=== PATIENT | male | born 1965 | race Caucasian/White ===

== ENCOUNTER 2016-11-13 21:08 | Inpatient (IN) | payer MEDICARE ==
[~2016-11-13] VITALS: Ht 177.8 cm; Wt 75.0 kg
[2016-11-14] MEDS ORDERED: HALOPERIDOL 5 MG TABLET PO PRN (00:15)
[2016-11-14] MEDS ORDERED: ZOLPIDEM TARTRATE 10 MG TABLET PO PRN (00:15)
[2016-11-14 01:00] VITALS: BP 119/74
[2016-11-14] MEDS ORDERED: INFLUENZA VIRUS VACCINE QVS 2016-17 (3YR+)/PF 60 MCG/0.5 ML SYRINGE IM ONE (01:15)
[2016-11-14] MEDS ORDERED: PNEUMOCOCCAL VACCINE POLYVALENT 0.5 ML VIAL [PPSV23] IM ONE (01:15)
[2016-11-14 06:31] LABS: GLUCOSE,POINT OF CARE 123 MG/DL (70-110)
[2016-11-14 08:06] VITALS: BP 120/71
[2016-11-14] MEDS: LORazepam 2 MG TABLET PO PRN (08:26)
[2016-11-14 16:03] VITALS: BP 112/94
[2016-11-14] MEDS ORDERED: ALBUTEROL SULFATE HFA 90 MCG/PUFF 8 GM INHALER IH PRN (19:00)
[2016-11-14] MEDS ORDERED: BENZOCAINE/MENTHOL LOZENGE MM PRN (19:00)
[2016-11-14] MEDS ORDERED: CloNIDine HCL 0.1 MG TABLET PO PRN (19:00)
[2016-11-14] MEDS ORDERED: IBUPROFEN 600 MG TABLET PO PRN (19:00)
[2016-11-14] MEDS ORDERED: LOPERAMIDE HCL 2 MG CAPSULE PO PRN (19:00)
[2016-11-14] MEDS ORDERED: BACITRACIN 28.4 GM OINTMENT TP PRN (19:00)
[2016-11-14] MEDS ORDERED: MAGNESIUM HYDROXIDE SUSPENSION 30 ML UDCUP PO PRN (19:00)
[2016-11-14] MEDS ORDERED: ONDANSETRON HCL 4 MG TABLET PO PRN (19:00)
[2016-11-14] MEDS ORDERED: PETROLATUM,WHITE 71 GM JELLY TP PRN (19:00)
[2016-11-14] MEDS ORDERED: ACETAMINOPHEN 325 MG TABLET PO PRN (19:00)
[2016-11-14] MEDS ORDERED: MAG HYDROX/AL HYDROX/SIMETH ES 30 ML SUSPENSION UDCUP PO PRN (19:00)
[2016-11-15 03:47] VITALS: BP 124/85
[2016-11-15 08:17] VITALS: BP 109/66
[2016-11-15] MEDS: MUPIROCIN CALCIUM 2% 15 GM CREAM TP SCH ×2 (13:00→16:31)
[2016-11-15] MEDS: RisperiDONE 3 MG TABLET PO SCH ×2 (13:00→16:31)
[2016-11-15 16:20] VITALS: BP 121/72
[2016-11-15] MEDS ORDERED: RisperiDONE 3 MG TABLET PO SCH (17:00)
[2016-11-16 06:22] VITALS: BP 123/63
[2016-11-16 08:33] VITALS: BP 102/65
[2016-11-16] MEDS: RisperiDONE 3 MG TABLET PO SCH ×2 (09:57→16:44)
[2016-11-16] MEDS: MUPIROCIN CALCIUM 2% 15 GM CREAM TP SCH ×2 (09:57→17:16)
[2016-11-16 16:05] VITALS: BP 114/68
[2016-11-17 06:45] VITALS: BP 112/66
[2016-11-17 08:04] VITALS: BP 107/60
[2016-11-17] MEDS: RisperiDONE 3 MG TABLET PO SCH ×2 (09:44→17:19)
[2016-11-17] MEDS: MUPIROCIN CALCIUM 2% 15 GM CREAM TP SCH ×2 (09:44→17:19)
[2016-11-17 16:00] VITALS: BP 106/75
[2016-11-18 06:31] VITALS: BP 114/68
[2016-11-18 08:03] VITALS: BP 129/67
[2016-11-18] MEDS: RisperiDONE 3 MG TABLET PO SCH (08:25)
[2016-11-18] MEDS: LORazepam 2 MG TABLET PO PRN (08:25)
[2016-11-18] MEDS: MUPIROCIN CALCIUM 2% 15 GM CREAM TP SCH ×2 (08:26→16:38)
[2016-11-18 16:18] VITALS: BP 114/67
[2016-11-18] MEDS: RisperiDONE CONC 3 MG/3 ML SOLUTION ORAL.SYG PO SCH (16:37)
[2016-11-18] MEDS ORDERED: RisperiDONE CONC 3 MG/3 ML SOLUTION ORAL.SYG PO ONE (17:00)
[2016-11-19 04:11] VITALS: BP 108/70
[2016-11-19 07:30] LABS: BASOPHILS % (AUTO) 0.2 % (0.0-2.0); EOSINOPHILS % (AUTO) 1.9 % (1.0-6.0); HEMOGLOBIN 14.9 g/dL (13.5-17.5); LYMPHOCYTES # (AUTO) 1.4 K/uL (1.0-4.8); LYMPHOCYTES % (AUTO) 22.9 % (22.0-44.0); MEAN CORPUSCULAR HEMOGLOBIN 31.2 pg (26.0-34.0); MEAN CORPUSCULAR HGB CONC 33.8 G/dL (31.0-37.0); MEAN CORPUSCULAR VOLUME 92 fL (80-100); MONOCYTES # (AUTO) 0.4 K/uL (0.1-1.0); MONOCYTES % (AUTO) 6.1 % (2.0-9.0); NEUTROPHILS # (AUTO) 4.1 K/uL (1.8-7.7); NEUTROPHILS % (AUTO) 68.9 % (40.0-70.0); PLATELET COUNT (AUTO) 160 K/uL (150-450); RED BLOOD CELL COUNT(AUTO) 4.77 MIL/uL (4.50-5.90); RED CELL DISTRIBUTION WIDTH 12.6 % (11.5-14.5); WHITE BLOOD COUNT (AUTO) 5.9 K/uL (4.5-11.0)
[2016-11-19 07:54] LABS: HEMOGLOBIN A1C 4.9 % (4.5-6.2)
[2016-11-19 08:08] LABS: ALANINE AMINOTRANSFERASE 16 U/L (12-78); ALBUMIN 3.6 g/dL (3.4-5.0); ANION GAP 7 mmol/L (8-16); ASPARTATE AMINOTRANSFERASE 12 U/L (15-37); BILIRUBIN,TOTAL 0.3 mg/dL (0.1-1.0); CALCIUM, TOTAL 9.1 mg/dL (8.8-10.5); CARBON DIOXIDE 27 mmol/L (22-29); CHLORIDE 105 mmol/L (98-107); CHOL/HDL RATIO 2.8 (4.2-7.3); CREATININE 0.84 mg/dL (0.60-1.30); GLOMERULAR FILTR. RATE CALC > 60 mL/min (>60); POTASSIUM 4.3 mmol/L (3.5-5.1); SODIUM SERUM 139 mmol/L (136-145); THYROID STIMULATING HORMONE 0.21 uIU/mL (0.36-3.74); TOTAL PROTEIN, SERUM 6.6 g/dL (6.4-8.2); UREA NITROGEN, BLOOD 11 mg/dL (7-18)
[2016-11-19 08:35] VITALS: BP 108/63
[2016-11-19] MEDS: RisperiDONE CONC 3 MG/3 ML SOLUTION ORAL.SYG PO SCH (09:48)
[2016-11-19] MEDS: MUPIROCIN CALCIUM 2% 15 GM CREAM TP SCH (09:48)
[2016-11-19] MEDS: LORazepam 2 MG TABLET PO PRN (09:49)
[2016-11-19] MEDS ORDERED: RISP3 PO (11:44)
[2016-11-19] MEDS ORDERED: MUPI15CR TP (11:48)
== END 2016-11-19 14:30 | disposition home or self-care (01) | DRG 885 ==
LOC: EDSTATUS 22:20 → B3A 11-14 00:06
PROVIDERS: ADMIT Psychiatry & Neurology Psychiatry; ATTEND Psychiatry & Neurology Psychiatry
DX: F20.0 Paranoid schizophrenia (principal); R73.9 Hyperglycemia, unspecified; K59.00 Constipation, unspecified; S61.412A Laceration without foreign body of left hand, initial encounter; Z72.89 Other problems related to lifestyle; Z91.14 Patient's other noncompliance with medication regimen; X58.XXXA Exposure to other specified factors, initial encounter; Y93.89 Activity, other specified; Y92.89 Other specified places as the place of occurrence of the external cause; Y99.8 Other external cause status
CPT/HCPCS: 82962; 83036; 84439; 84443; 87081

== ENCOUNTER 2017-01-31 09:03 | Inpatient (IN) | payer MEDICARE ==
[~2017-01-31] VITALS: Ht 177.8 cm; Wt 79.2 kg
[~2017-01-31 09:03] MED LIST: MUPI15CR TP; RISP3 PO
[2017-01-31 10:50] VITALS: BP 113/67
[2017-01-31] MEDS ORDERED: HALOPERIDOL 5 MG TABLET PO PRN (11:15)
[2017-01-31] MEDS ORDERED: LORazepam 2 MG TABLET PO PRN (11:15)
[2017-01-31] MEDS ORDERED: ZOLPIDEM TARTRATE 10 MG TABLET PO PRN (11:15)
[2017-01-31 11:49] VITALS: BP 116/76
[2017-01-31 16:11] VITALS: BP 125/72
[2017-01-31] MEDS: RisperiDONE 3 MG TABLET PO SCH (16:12)
[2017-02-01] VITALS: BP 127/77
[2017-02-01 08:11] VITALS: BP 134/80
[2017-02-01] MEDS: RisperiDONE 3 MG TABLET PO SCH ×2 (09:00→16:37)
[2017-02-01 09:33] LABS: BASOPHILS % (AUTO) 0.2 % (0.0-2.0); EOSINOPHILS % (AUTO) 2.8 % (1.0-6.0); HEMOGLOBIN 15.1 g/dL (13.5-17.5); LYMPHOCYTES # (AUTO) 1.2 K/uL (1.0-4.8); LYMPHOCYTES % (AUTO) 21.9 % (22.0-44.0); MEAN CORPUSCULAR HEMOGLOBIN 30.2 pg (26.0-34.0); MEAN CORPUSCULAR HGB CONC 32.9 G/dL (31.0-37.0); MEAN CORPUSCULAR VOLUME 92 fL (80-100); MONOCYTES # (AUTO) 0.2 K/uL (0.1-1.0); MONOCYTES % (AUTO) 4.6 % (2.0-9.0); NEUTROPHILS # (AUTO) 3.8 K/uL (1.8-7.7); NEUTROPHILS % (AUTO) 70.5 % (40.0-70.0); PLATELET COUNT (AUTO) 156 K/uL (150-450); RED BLOOD CELL COUNT(AUTO) 5.01 MIL/uL (4.50-5.90); RED CELL DISTRIBUTION WIDTH 13.1 % (11.5-14.5); WHITE BLOOD COUNT (AUTO) 5.4 K/uL (4.5-11.0)
[2017-02-01 09:49] LABS: ALANINE AMINOTRANSFERASE 21 U/L (12-78); ALBUMIN 3.7 g/dL (3.4-5.0); ANION GAP 9 mmol/L (8-16); ASPARTATE AMINOTRANSFERASE 14 U/L (15-37); BILIRUBIN,TOTAL 0.4 mg/dL (0.1-1.0); CALCIUM, TOTAL 9.1 mg/dL (8.8-10.5); CARBON DIOXIDE 27 mmol/L (22-29); CHLORIDE 105 mmol/L (98-107); CREATININE 1.05 mg/dL (0.60-1.30); GLOMERULAR FILTR. RATE CALC > 60 mL/min (>60); POTASSIUM 4.4 mmol/L (3.5-5.1); SODIUM SERUM 141 mmol/L (136-145); UREA NITROGEN, BLOOD 17 mg/dL (7-18)
[2017-02-01 16:19] VITALS: BP 109/77
[2017-02-01] MEDS ORDERED: CloNIDine HCL 0.1 MG TABLET PO PRN (21:45)
[2017-02-01] MEDS ORDERED: IBUPROFEN 600 MG TABLET PO PRN (21:45)
[2017-02-01] MEDS ORDERED: PETROLATUM,WHITE 71 GM JELLY TP PRN (21:45)
[2017-02-01] MEDS ORDERED: ALBUTEROL SULFATE HFA 90 MCG/PUFF 8 GM INHALER IH PRN (21:45)
[2017-02-01] MEDS ORDERED: MAGNESIUM HYDROXIDE SUSPENSION 30 ML UDCUP PO PRN (21:45)
[2017-02-01] MEDS ORDERED: ONDANSETRON HCL 4 MG TABLET PO PRN (21:45)
[2017-02-01] MEDS ORDERED: MAG HYDROX/AL HYDROX/SIMETH ES 30 ML SUSPENSION UDCUP PO PRN (21:45)
[2017-02-01] MEDS ORDERED: BACITRACIN 28.4 GM OINTMENT TP PRN (21:45)
[2017-02-01] MEDS ORDERED: ACETAMINOPHEN 325 MG TABLET PO PRN (21:45)
[2017-02-01] MEDS ORDERED: LOPERAMIDE HCL 2 MG CAPSULE PO PRN (21:45)
[2017-02-01] MEDS ORDERED: BENZOCAINE/MENTHOL LOZENGE MM PRN (21:45)
[2017-02-02 01:47] VITALS: BP 109/69
[2017-02-02 08:11] VITALS: BP 124/70
[2017-02-02] MEDS: DOCUSATE SODIUM 100 MG CAPSULE PO SCH (08:44)
[2017-02-02] MEDS: RisperiDONE 3 MG TABLET PO SCH ×2 (08:44→16:36)
[2017-02-02] MEDS: OMEPRAZOLE 20 MG CAPSULE PO SCH (08:44)
[2017-02-02 08:57] LABS: HEMOGLOBIN A1C 5.2 % (4.5-6.2)
[2017-02-02 09:15] LABS: CHOL/HDL RATIO 3.5 (4.2-7.3); THYROID STIMULATING HORMONE 0.5 uIU/mL (0.36-3.74)
[2017-02-02 16:26] VITALS: BP 101/68
[2017-02-03 00:28] VITALS: BP 103/65
[2017-02-03 08:11] VITALS: BP 117/88
[2017-02-03] MEDS: DOCUSATE SODIUM 100 MG CAPSULE PO SCH (08:46)
[2017-02-03] MEDS: OMEPRAZOLE 20 MG CAPSULE PO SCH (08:46)
[2017-02-03] MEDS: RisperiDONE 3 MG TABLET PO SCH ×2 (08:46→16:41)
[2017-02-03 16:18] VITALS: BP 123/67
[2017-02-04 05:33] VITALS: BP 105/75
[2017-02-04 08:46] VITALS: BP 116/66
[2017-02-04] MEDS: OMEPRAZOLE 20 MG CAPSULE PO SCH (09:41)
[2017-02-04] MEDS: CHOLECALCIFEROL (VIT D3) 1,000 UNITS TABLET PO SCH (09:41)
[2017-02-04] MEDS: DOCUSATE SODIUM 100 MG CAPSULE PO SCH (09:41)
[2017-02-04] MEDS: RisperiDONE 3 MG TABLET PO SCH ×2 (09:41→16:42)
[2017-02-04 16:10] VITALS: BP 113/80
[2017-02-05 00:07] VITALS: BP 121/68
[2017-02-05 08:31] VITALS: BP 111/67
[2017-02-05] MEDS: CHOLECALCIFEROL (VIT D3) 1,000 UNITS TABLET PO SCH (08:52)
[2017-02-05] MEDS: DOCUSATE SODIUM 100 MG CAPSULE PO SCH (08:52)
[2017-02-05] MEDS: RisperiDONE 3 MG TABLET PO SCH ×2 (08:52→16:41)
[2017-02-05] MEDS: OMEPRAZOLE 20 MG CAPSULE PO SCH (08:52)
[2017-02-05 16:13] VITALS: BP 107/63
[2017-02-06 05:29] VITALS: BP 104/87
[2017-02-06 08:28] VITALS: BP 114/73
[2017-02-06] MEDS: OMEPRAZOLE 20 MG CAPSULE PO SCH (08:55)
[2017-02-06] MEDS: RisperiDONE 3 MG TABLET PO SCH ×2 (08:55→16:29)
[2017-02-06] MEDS: CHOLECALCIFEROL (VIT D3) 1,000 UNITS TABLET PO SCH (08:55)
[2017-02-06] MEDS: DOCUSATE SODIUM 100 MG CAPSULE PO SCH (08:55)
[2017-02-06 16:13] VITALS: BP 120/71
[2017-02-07 06:14] VITALS: BP 111/64
[2017-02-07 08:29] VITALS: BP 124/79
[2017-02-07] MEDS: OMEPRAZOLE 20 MG CAPSULE PO SCH (08:51)
[2017-02-07] MEDS: DOCUSATE SODIUM 100 MG CAPSULE PO SCH (08:51)
[2017-02-07] MEDS: CHOLECALCIFEROL (VIT D3) 1,000 UNITS TABLET PO SCH (08:51)
[2017-02-07] MEDS: RisperiDONE 3 MG TABLET PO SCH ×2 (08:51→16:35)
[2017-02-07 16:16] VITALS: BP 112/85
[2017-02-07] MEDS ORDERED: BENZTROPINE MESYLATE 0.5 MG TABLET PO SCH (17:30)
[2017-02-07] MEDS ORDERED: BENZ0.5T6 PO (18:22)
== END 2017-02-07 19:45 | DRG 885 ==
LOC: B2X 11:07 → EDSTATUS 11:30
PROVIDERS: ADMIT Psychiatry & Neurology Child & Adolescent Psychiatry; ATTEND Psychiatry & Neurology Child & Adolescent Psychiatry
DX: F20.0 Paranoid schizophrenia (principal); R45.851 Suicidal ideations; F10.10 Alcohol abuse, uncomplicated; K59.00 Constipation, unspecified; E55.9 Vitamin D deficiency, unspecified; Z71.41 Alcohol abuse counseling and surveillance of alcoholic; Z79.899 Other long term (current) drug therapy; Z91.19 Patient's noncompliance with other medical treatment and regimen
CPT/HCPCS: 82306; 83036; 84443